=== PATIENT | female | born 1980 | race Caucasian/White ===

== ENCOUNTER 2021-04-16 11:13 | Emergency (ER) | payer BC, OTHER ==
[~2021-04-16] VITALS: Ht 160 cm; Wt 108.9 kg
[2021-04-16] MEDS ORDERED: CASIRIVIMAB/IMDEVIMAB 10 ML in SODIUM CHLORIDE 0.9% 100 ML IV ONE (13:45)
== END 2021-04-16 14:35 | disposition home or self-care (01) ==
LOC: ER 12:08
DX: R50.9 Fever, unspecified (principal); U07.1 COVID-19; R51.9 Headache, unspecified
CPT/HCPCS: 99283